=== PATIENT | male | born 1985 | race Caucasian/White ===

== ENCOUNTER 2017-07-24 17:34 | Emergency (ER) | payer MEDICARE ==
[2017-07-24] MEDS ORDERED: DICY10CA53 PO (18:42)
[2017-07-24] MEDS ORDERED: PSEU120T9 PO (18:42)
[2017-07-24] MEDS ORDERED: FLUT9.9S NS (18:42)
[2017-07-24] MEDS ORDERED: ONDA4TAB10 SL (18:42)
--- NOTE | 2017-07-24 18:43 | PHYS DOC ---
Past History Past Medical History: Depression, Sinusitis Past Surgical History: No Surgical History Smoking: Non-smoker Alcohol Use: Occasionally Drug Use: None Adult General Chief Complaint Chief Complaint: COUGH HPI HPI Patient is a 32-year-old male with a History of depression and sinusitis who presents with one episode of nausea and vomiting epigastric abdominal pain now resolved. Patient didn't having problems for years with the sinuses and he states that whenever his sinuses become congested he gets nauseated and vomits. He had one episode of nausea and vomiting that occurred 1 hour prior to arrival was nonbilious nonbloody he did have some "" abdominal soreness across the top of his abdomen. It is episodic it is not change with position or food. He's been suffering from this as well from a number of months. Although he has no primary care doctor. Denies any diarrhea, change in bowel habits, denies any travel outside the country, denies any recent antibiotic, denies any fevers, chills, blood in stool, denies any UTI symptoms, back pain or other symptoms. Nasal congestion which is occurring quite frequently causes pressure across his face with no fevers no chills no hearing loss or tinnitus or ear drainage loss and vision change in vision or headaches. Review of Systems Review of Systems Constitutional: Denies fever or chills [] Eyes: Denies change in visual acuity, redness, or eye pain [] HENT: Positive for nasal congestion without sore throat Respiratory: Positive for slight cough without shortness of breath] Cardiovascular: No additional information not addressed in HPI [] GI: Acid for abdominal pain nausea and vomiting 1 no bloody stools or diarrhea : Denies dysuria or hematuria [] Musculoskeletal: Denies back pain or joint pain [] Integument: Denies rash or skin lesions [] Neurologic: Denies headache, focal weakness or sensory changes [] Endocrine: Denies polyuria or polydipsia [] All other systems were reviewed and found to be within normal limits, except as documented in this note. Physical Exam Physical Exam Constitutional: Well developed, well nourished, no acute distress, non-toxic appearance. [] HENT: Normocephalic, atraumatic, bilateral external ears normal, oropharynx moist, no oral exudates, nose normal. No external tenderness to palpation of the frontal and maxillary sinuses TMs are clear bilaterally [] Eyes: PERRLA, EOMI, conjunctiva normal, no discharge. [] Neck: Normal range of motion, no tenderness, supple, no stridor. [] Cardiovascular:Heart rate regular rhythm, no murmur [] Lungs & Thorax: Bilateral breath sounds clear to auscultation [] Abdomen: Bowel sounds normal, soft, no tenderness, no masses, no pulsatile masses. No Ferrara's tenderness palpation of McBurney's point tenderness palpation no Sauer Bowman sign[] Skin: Warm, dry, no erythema, no rash. [] Extremities: ROM intact, no edema. [] Neurologic: Alert and oriented X 3, normal motor function, normal sensory function, no focal deficits noted. [] Psychologic: Affect normal, judgement normal, mood normal. [] EKG EKG [] Radiology/Procedures Radiology/Procedures [] Course & Med Decision Making Course & Med Decision Making Pertinent Labs and Imaging studies reviewed. (See chart for details) []Patient presents with one episode of nausea and vomiting with no blood no bile in his emesis his abdomen on my exam is very soft. He specifically has no tenderness in the right upper quadrant epigastric region or right lower quadrant. He is normoactive bowel sounds. He looks very well-hydrated with normal vital signs. On exam patient's face does not demonstrate any signs of acute sinusitis or retropharyngeal abscess, or peritonsillar abscess is normal voice with no lymphadenopathy anteriorly, no anterior neck stiffness. Patient sinusitis been bothering him for years. Given the fact this is single episode of nausea vomiting and his belly seems soft on my exam we talked about further workup and follow-up with his primary care doctor to address his chronic issues. At this point patient's primary looking for symptomatically treatment. My discharge plan Follow up: In addition patient is asked to followup with their primary doctor, within a week for followup examination and to address patient's ongoing medical conditions. . Patient is advised that in the Emergency Department primary complaints are addressed and only in light of known signs and symptoms. Patient should return immediately to the emergency department if new signs and symptoms develop or patient's condition worsens in any way. At time of discharge patient was in stable condition and had verbalized understanding of the discharge instructions. Although there is no obvious evidence of appendicitis or intra-abdominal catastrophe at this time requiring surgical intervention or immediate medical management you could still develop these issues in the future. I would ask that you return immediately for any increasing symptoms question concerns. Dragon Disclaimer Dragon Disclaimer This electronic medical record was generated, in whole or in part, using a voice recognition dictation system. Departure Departure: Impression: Primary Impression: Nausea and vomiting Additional Impressions: Abdominal pain Sinus pressure Acute sinusitis Disposition: 01 HOME, SELF-CARE Condition: STABLE Referrals: NON,STAFF (PCP) Patient Instructions: Abdominal Pain (Nonspecific), Nausea and Vomiting, Sinusitis Additional Instructions: My discharge plan Follow up: In addition patient is asked to followup with their primary doctor, within a week for followup examination and to address patient's ongoing medical conditions. . Patient is advised that in the Emergency Department primary complaints are addressed and only in light of known signs and symptoms. Patient should return immediately to the emergency department if new signs and symptoms develop or patient's condition worsens in any way. At time of discharge patient was in stable condition and had verbalized understanding of the discharge instructions. Although there is no obvious evidence of appendicitis or intra-abdominal catastrophe at this time requiring surgical intervention or immediate medical management you could still develop these issues in the future. I would ask that you return immediately for any increasing symptoms question concerns. Scripts Pseudoephedrine Hcl (SUDAFED 12-HOUR) 120 Mg Tablet.er 1 TAB PO BID, #20 TAB Prov: MILTON CARLSON MD 07/24/17 Ondansetron (ZOFRAN ODT) 4 Mg Tab.rapdis 1 TAB SL Q8HRS, #15 TAB Prov: MILTON CARLSON MD 07/24/17 Fluticasone Propionate (Flonase Allergy Relief) 9.9 Ml [place].susp 2 SPRAYS NS DAILY for 7 Days, BOTTLE Prov: MILTON CARLSON MD 07/24/17 Dicyclomine Hcl (BENTYL) 10 Mg Capsule 1 CAP PO TID, #15 CAP.EC Prov: MILTON CARLSON MD 07/24/17 Problem Qualifiers MILTON CARLSON MD Jul 24, 2017 18:43
[2017-07-24] MEDS ORDERED: KETOROLAC 60 MG/2 ML VIAL. IM ONE (18:45)
[2017-07-24] MEDS ORDERED: ONDANSETRON ODT 4 MG TAB.RAPDIS PO ONE (18:45)
[2017-07-24 18:59] VITALS: BP 116/75
== END 2017-07-24 18:59 | disposition home or self-care (01) ==
LOC: ER 17:34
DX: R11.2 Nausea with vomiting, unspecified (principal); R10.13 Epigastric pain; J01.90 Acute sinusitis, unspecified; R19.7 Diarrhea, unspecified; F32.9 Major depressive disorder, single episode, unspecified
CPT/HCPCS: 96372; 99283; J1885; Q0162

== ENCOUNTER 2017-09-24 22:03 | Emergency (ER) | payer MEDICAID, MEDICARE ==
[~2017-09-24] VITALS: Ht 188 cm; Wt 98.4 kg
[~2017-09-24 22:03] MED LIST: DICY10CA53 PO; FLUT9.9S NS; ONDA4TAB10 SL; PSEU120T9 PO
[2017-09-24] MEDS ORDERED: ONDANSETRON ODT 4 MG TAB.RAPDIS PO ONE (22:30)
--- NOTE | 2017-09-24 22:35 | ED.ADGEN ---
Past History Past Medical History: Anxiety, Depression, Sinusitis Past Surgical History: Other Smoking: Non-smoker Alcohol Use: Occasionally Drug Use: None Adult General Chief Complaint Chief Complaint nausea and vomiting HPI HPI Patient is a 32 year old male who presents with nausea and vomiting for 1 hour. Reports pain in chest and abdomen only with vomiting and then resolves. Prior to the vomiting starting, he was feeling well. Reports normal BM earlier today. Pt reports intermittent similar symptoms since having his adenoids taken out "about a month ago". 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 He reports chronic sinus drainage not relieved with daily allergy medication. Seen in July for identical sounding picture but hasn't seen a PCP, plans to f/u with Dr. Mayer. Does not think he has been on antibiotics in that time and hasn't f/u with the ENT doc that performed the surgery. Denies fevers, Pt denies abdominal pain at this time, no prior abdominal surgeries, denies fever. When family arrived, they report that pt has had multiple similar episodes in the last several months. Wowldr-cp-iho reports that she thought the vomit today had "coffee-ground" emesis today when she saw the vomit. No reports of chronic ibuprofen use. Review of Systems Review of Systems Constitutional: Denies fever or chills [] Eyes: Denies change in visual acuity, redness, or eye pain [] HENT: Denies nasal congestion or sore throat [] Respiratory: reports cough , denies shortness of breath [] Cardiovascular: No additional information not addressed in HPI [] GI: per hpi : Denies dysuria or hematuria [] Musculoskeletal: Denies back pain or joint pain [] Integument: Denies rash or skin lesions [] Neurologic: Denies headache, focal weakness or sensory changes [] Current Medications Current Medications Current Medications Medications (Trade) Dose Ordered Sig/Delmis Start Time Stop Time Status Last Admin Dose Admin Ondansetron HCl (Zofran Odt) 4 mg 1X ONCE 09/24/17 22:30 09/24/17 22:34 DC 09/24/17 22:35 4 MG Ondansetron HCl (Zofran) 4 mg 1X ONCE 09/24/17 23:00 09/25/17 00:18 DC 3/24/18 23:00 4 MG Sodium Chloride 1,000 ml @ 1,000 mls/hr 1X ONCE 09/25/17 00:00 09/25/17 00:59 DC 09/24/17 23:57 1,000 MLS/HR Allergies Allergies Allergies Coded Allergies Type Severity Reaction Last Updated Verified No Known Drug Allergies 07/24/17 No Physical Exam Physical Exam Constitutional: Well developed, well nourished, no acute distress, non-toxic appearance. [] HENT: Normocephalic, atraumatic, bilateral external ears normal, oropharynx moist, no oral exudates, nose normal. [] Eyes: PERRLA, EOMI, conjunctiva normal, no discharge. [] Neck: Normal range of motion, no tenderness, supple, no stridor. [] Cardiovascular:Heart rate regular with regular rhythm, no murmur [] Lungs & Thorax: Bilateral breath sounds clear to auscultation, no wheeze crackles or rhonchi Abdomen: Bowel sounds normal, soft, no tenderness, no masses, no pulsatile masses, negative mcburneys, no guarding or peritoneal signs, neg pimentel's Skin: Warm, dry, no erythema, no rash. [] Back: No tenderness, no CVA tenderness. [] Extremities: No tenderness, no cyanosis, no clubbing, ROM intact, no edema. [] Neurologic: Alert and oriented, normal motor function, normal sensory function, no focal deficits noted. [] Current Patient Data Vital Signs Vital Signs Date Time Temp Pulse Resp B/P (MAP) Pulse Ox O2 Delivery O2 Flow Rate FiO2 09/24/17 22:20 98.9 75 20 96 Room Air Lab Results Laboratory Tests Test 09/24/17 22:57 09/24/17 23:03 09/25/17 00:20 White Blood Count 9.7 x10^3/uL (4.0-11.0) Red Blood Count 5.22 x10^6/uL (4.30-5.70) Hemoglobin 15.7 g/dL (13.0-17.5) Hematocrit 46.1 % (39.0-53.0) Mean Corpuscular Volume 88 fL (79-100) Mean Corpuscular Hemoglobin 30 pg (25-35) Mean Corpuscular Hemoglobin Concent 34 g/dL (31-37) Red Cell Distribution Width 13.7 % (11.5-14.5) Platelet Count 285 x10^3/uL (140-400) Neutrophils (%) (Auto) 55 % (31-73) Lymphocytes (%) (Auto) 37 % (24-48) Monocytes (%) (Auto) 7 % (0-9) Eosinophils (%) (Auto) 1 % (0-3) Basophils (%) (Auto) 1 % (0-3) Neutrophils # (Auto) 5.3 x10^3uL (1.8-7.7) Lymphocytes # (Auto) 3.6 x10^3/uL (1.0-4.8) Monocytes # (Auto) 0.6 x10^3/uL (0.0-1.1) Eosinophils # (Auto) 0.1 x10^3/uL (0.0-0.7) Basophils # (Auto) 0.1 x10^3/uL (0.0-0.2) Sodium Level 140 mmol/L (136-145) Potassium Level 3.7 mmol/L (3.5-5.1) Chloride Level 101 mmol/L (98-107) Carbon Dioxide Level 24 mmol/L (21-32) Anion Gap 15 (6-14) H Blood Urea Nitrogen 9 mg/dL (8-26) Creatinine 1.4 mg/dL (0.7-1.3) H Estimated GFR (Cockcroft-Gault) 58.4 BUN/Creatinine Ratio 6 (6-20) Glucose Level 105 mg/dL (70-99) H Lactic Acid Level 4.3 mmol/L (0.4-2.0) *H 1.2 mmol/L (0.4-2.0) Calcium Level 9.7 mg/dL (8.5-10.1) Total Bilirubin 0.3 mg/dL (0.2-1.0) Aspartate Amino Transferase (AST) 20 U/L (15-37) Alanine Aminotransferase (ALT) 28 U/L (16-63) Alkaline Phosphatase 125 U/L (46-116) H Total Protein 8.0 g/dL (6.4-8.2) Albumin 4.2 g/dL (3.4-5.0) Albumin/Globulin Ratio 1.1 (1.0-1.7) Stool Occult Blood Negative (NEG) EKG EKG [] Radiology/Procedures Radiology/Procedures CXR 1 view: no cardi, pulmonary or bony abnormality. Interpreted by me.[] Course & Med Decision Making Course & Med Decision Making Pertinent Labs and Imaging studies reviewed. (See chart for details) I reviewed pt's medical records. Pt given zofran odt. CXR ordered for cough. When additional information provided by family, IV established, labs obtained, fecal occult and IV zofran and fluids given. Pt feeling much improved and symptoms resolved. Lactate elevated, likely due to the repeated vomiting. second liter of fluids ordered, and will repeat. If continues to be elevated, explained pt would need to be admitted. Repeat was normal. Pt's symptoms still controlled, dc'd home with strict return precautions, zofran RX, recommend f/u with Dr. Mayer and Dr. Davidson. Final Impression Final Impression Nausea and vomiting.[] Problems: Dragon Disclaimer Dragon Disclaimer This electronic medical record was generated, in whole or in part, using a voice recognition dictation system. DC MISTRY MD Sep 24, 2017 22:35
[2017-09-24] MEDS ORDERED: IV NORMAL SALINE 1,000ML 1,000 ML IV ONE (23:00)
[2017-09-24] MEDS ORDERED: ONDANSETRON PF 4 MG/2 ML VIAL. IV ONE (23:00)
[2017-09-24 23:18] LABS: BASO # 0.1 x10^3/uL (0.0-0.2); BASO % 1 % (0-3); EOS # 0.1 x10^3/uL (0.0-0.7); EOS % 1 % (0-3); HEMATOCRIT 46.1 % (39.0-53.0); HEMOGLOBIN 15.7 g/dL (13.0-17.5); LYMPH # 3.6 x10^3/uL (1.0-4.8); LYMPH % 37 % (24-48); MEAN CORPUSCULAR HEMOGLOBIN 30 pg (25-35); MEAN CORPUSCULAR HGB CONC 34 g/dL (31-37); MEAN CORPUSCULAR VOLUME 88 fL (79-100); MONO # 0.6 x10^3/uL (0.0-1.1); MONO % 7 % (0-9); NEUT # 5.3 x10^3uL (1.8-7.7); NEUT % 55 % (31-73); PLATELET COUNT 285 x10^3/uL (140-400); RED BLOOD COUNT 5.22 x10^6/uL (4.30-5.70); RED CELL DISTRIBUTION WIDTH 13.7 % (11.5-14.5); WHITE BLOOD COUNT 9.7 x10^3/uL (4.0-11.0)
[2017-09-24 23:24] LABS: FECAL OB PT NEGATIVE (NEG)
[2017-09-24 23:28] LABS: ALBUMIN 4.2 g/dL (3.4-5.0); ALBUMIN/GLOBULIN RATIO 1.1 (1.0-1.7); CALCIUM 9.7 mg/dL (8.5-10.1); CREATININE 1.4 mg/dL (0.7-1.3); GFR 58.4; POTASSIUM 3.7 mmol/L (3.5-5.1); TOTAL BILIRUBIN 0.3 mg/dL (0.2-1.0)
[2017-09-24] MEDS ORDERED: ONDA4TAB10 SL (23:50)
[2017-09-25] MEDS ORDERED: IV NORMAL SALINE 1,000ML 1,000 ML IV ONE
[2017-09-25 01:00] VITALS: BP 118/70
--- NOTE | 2017-09-25 08:08 | RAD ---
Portable chest, 09/24/2017: History: Cough, shortness of breath The heart size and pulmonary vascularity are normal. The lungs are clear. There is no evidence of pleural fluid. IMPRESSION: No acute cardiopulmonary abnormality is detected.
== END 2017-09-25 01:00 | disposition home or self-care (01) ==
LOC: ER 22:03
DX: R11.2 Nausea with vomiting, unspecified (principal); R05 Cough; F41.9 Anxiety disorder, unspecified; F32.9 Major depressive disorder, single episode, unspecified
CPT/HCPCS: 36415; 71045; 80053; 82274; 83605; 85025; 96361; 96374; 99285; J2405; Q0162; J7030

== ENCOUNTER 2017-10-12 20:48 | Inpatient (IN) | payer MEDICARE ==
[~2017-10-12] VITALS: Ht 185.4 cm; Wt 94.5 kg
[2017-10-12] MEDS ORDERED: IV NORMAL SALINE 1,000ML 1,000 ML IV ONE (21:15)
[2017-10-12] MEDS ORDERED: IPRATRPIUM/ALBUTEROL 0.5/2.5MG 3 ML NEBU. NEB ONE (21:30)
[2017-10-12] MEDS ORDERED: methylPREDNISolone SOD SUCC PF 125 MG/2 ML VIAL. IV ONE (21:30)
[2017-10-12] MEDS ORDERED: IV NORMAL SALINE 1,000ML 1,000 ML IV SCH (21:46)
[2017-10-12 22:01] LABS: BASO # 0.1 x10^3/uL (0.0-0.2); BASO % 0 % (0-3); EOS % 0 % (0-3); HEMATOCRIT 42.7 % (39.0-53.0); HEMOGLOBIN 14.5 g/dL (13.0-17.5); LYMPH # 2.4 x10^3/uL (1.0-4.8); LYMPH % 20 % (24-48); MEAN CORPUSCULAR HEMOGLOBIN 30 pg (25-35); MEAN CORPUSCULAR HGB CONC 34 g/dL (31-37); MEAN CORPUSCULAR VOLUME 87 fL (79-100); MONO # 0.8 x10^3/uL (0.0-1.1); MONO % 7 % (0-9); NEUT # 8.8 x10^3uL (1.8-7.7); NEUT % 73 % (31-73); PLATELET COUNT 248 x10^3/uL (140-400); RED BLOOD COUNT 4.92 x10^6/uL (4.30-5.70); RED CELL DISTRIBUTION WIDTH 13.6 % (11.5-14.5)
[2017-10-12 22:03] LABS: CALCIUM 9.3 mg/dL (8.5-10.1); CREATININE 1.4 mg/dL (0.7-1.3); GFR 58.4; POTASSIUM 3.7 mmol/L (3.5-5.1)
--- NOTE | 2017-10-12 22:08 | EKG ---
[address] [address] Test Date: 2017-10-12 Test Time: 21:52:46 Pat Name: HARSHAD GARLAND Department: Room: Gender: M Grid Inspector: : 1985 Requested By: BETHANY WEINER Order Number: [id number] Reading MD: Sterling Castillo MD Measurements Intervals [place] Rate: 112 P: 2 CO: 160 QRS: 39 QRSD: 76 T: 6 QT: 316 QTc: 433 Interpretive Statements SINUS TACHYCARDIA Electronically Signed On 10-17-2017 16:09:45 CDT by Sterling Castillo MD
[2017-10-12] MEDS ORDERED: HYDROcodone/APAP 5/325MG 1 TAB TABLET ONE (22:24)
[2017-10-12] MEDS ORDERED: HYDROcodone/APAP 5/325MG 1 TAB TABLET PO ONE (22:45)
[2017-10-12] MEDS ORDERED: KETOROLAC 30 MG/ML VIAL. IV ONE (22:45)
[2017-10-12] MEDS ORDERED: IV NORMAL SALINE 250ML 250 ML ONE (23:49)
[2017-10-12] MEDS ORDERED: IV NORMAL SALINE 50ML 50 ML ONE (23:50)
[2017-10-12] MEDS ORDERED: AZITHROMYCIN 500 MG VIAL. IV ONE (23:50)
[2017-10-12] MEDS ORDERED: cefTRIAXone SODIUM 1 GM VIAL IV ONE (23:50)
[2017-10-13] MEDS ORDERED: ACETAMINOPHEN 325 MG TABLET PO PRN
[2017-10-13] MEDS ORDERED: ALBUTEROL SULFATE 2.5 MG/3 ML NEBU. NEB PRN
[2017-10-13] MEDS ORDERED: ONDANSETRON PF 4 MG/2 ML VIAL. IV PRN
[2017-10-13] MEDS ORDERED: MORPHINE SULFATE 4 MG/ML DISP.SYRIN. IV PRN
[2017-10-13] MEDS ORDERED: AZITHROMYCIN 500 MG in IV NORMAL SALINE 250ML 250 ML IV ONE ×2
[2017-10-13] MEDS ORDERED: IV NORMAL SALINE 1,000ML 1,000 ML IV ONE
[2017-10-13] MEDS: IV NORMAL SALINE 1,000ML 1,000 ML IV SCH ×3 (00:14→18:25)
[2017-10-13 00:41] VITALS: BP 123/75
[2017-10-13] MEDS ORDERED: OLAN5TAB9 PO (01:11)
[2017-10-13] MEDS ORDERED: PNEUMOCOCCAL VAX SCREEN. MC ONE (02:30)
--- NOTE | 2017-10-13 04:02 | PHYS DOC ---
Past History Past Medical History: Anxiety, Depression, Sinusitis Past Surgical History: Other Smoking: Non-smoker Alcohol Use: Occasionally Drug Use: None Adult General Chief Complaint Chief Complaint: COUGH HPI HPI 32-year-old male with a history of anxiety depression and a mental challenges, now presents the emergency department complaining of worsening chronic cough for the last month. Patient now feels more short of breath. He is hypoxic on room air at 86-88%. 95% on 2 L nasal cannula. Patient states his cough is severe at times but nonproductive. He denies any exertional chest pain sometimes has some discomfort with cough. His no history of blood clot DVT or PE and no limb pain or swelling. No fevers chills sweats or shaking chills. Denies other complaint Review of Systems Review of Systems Constitutional: Denies fever or chills [] Eyes: Denies change in visual acuity, redness, or eye pain [] HENT: Denies nasal congestion or sore throat [] Respiratory: Denies cough or shortness of breath [] Cardiovascular: No additional information not addressed in HPI [] GI: Denies abdominal pain, nausea, vomiting, bloody stools or diarrhea [] : Denies dysuria or hematuria [] Musculoskeletal: Denies back pain or joint pain [] Integument: Denies rash or skin lesions [] Neurologic: Denies headache, focal weakness or sensory changes [] Endocrine: Denies polyuria or polydipsia [] All other systems were reviewed and found to be within normal limits, except as documented in this note. Current Medications Current Medications Current Medications Medications (Trade) Dose Ordered Sig/Delmis Start Time Stop Time Status Last Admin Dose Admin Acetaminophen/ Hydrocodone Bitart (Lortab 5/325) 1 tab STK-MED ONCE 10/12/17 22:24 10/12/17 22:25 DC Albuterol/ Ipratropium (Duoneb) 3 ml 1X ONCE 10/12/17 21:30 10/12/17 21:31 DC 10/12/17 21:42 3 ML Ketorolac Tromethamine (Toradol) 30 mg 1X ONCE 10/12/17 22:45 10/12/17 22:46 DC 10/12/17 22:37 30 MG Methylprednisolone Sodium Succinate (SOLU-Medrol 125MG VIAL) 125 mg 1X ONCE 10/12/17 21:30 10/12/17 21:31 DC 10/12/17 21:41 125 MG Sodium Chloride 1,000 ml @ 500 mls/hr Q2H 10/12/17 21:46 10/12/17 23:45 DC 10/12/17 22:37 500 MLS/HR Allergies Allergies Allergies Coded Allergies Type Severity Reaction Last Updated Verified No Known Drug Allergies 07/24/17 No Physical Exam Physical Exam Constitutional: Well developed, well nourished, no acute distress, non-toxic appearance. [] HENT: Normocephalic, atraumatic, bilateral external ears normal, oropharynx moist, no oral exudates, nose normal. [] Eyes: PERRLA, EOMI, conjunctiva normal, no discharge. [] Neck: Normal range of motion, no tenderness, supple, no stridor. [] Cardiovascular:Heart rate regular rhythm, no murmur [] Lungs & Thorax: Occasional scattered rhonchi mild prolonged expiratory phase without jorge luis wheezing. No Rales rubs Abdomen: Bowel sounds normal, soft, no tenderness, no masses, no pulsatile masses. [] Skin: Warm, dry, no erythema, no rash. [] Back: No tenderness, no CVA tenderness. [] Extremities: No tenderness, no cyanosis, no clubbing, ROM intact, no edema. [] Neurologic: Alert and oriented X 3, normal motor function, normal sensory function, no focal deficits noted. [] Psychologic: Patient is a mildly flat affect which his brother says is his baseline, judgement normal, mood normal. [] Current Patient Data Vital Signs Vital Signs Date Time Temp Pulse Resp B/P (MAP) Pulse Ox O2 Delivery O2 Flow Rate FiO2 10/13/17 00:45 Nasal Cannula 2.0 10/13/17 00:41 98.4 99 16 123/75 (91) 95 Lab Results Laboratory Tests Test 10/12/17 21:15 10/12/17 22:34 10/13/17 00:10 White Blood Count 12.0 x10^3/uL (4.0-11.0) H Red Blood Count 4.92 x10^6/uL (4.30-5.70) Hemoglobin 14.5 g/dL (13.0-17.5) Hematocrit 42.7 % (39.0-53.0) Mean Corpuscular Volume 87 fL (79-100) Mean Corpuscular Hemoglobin 30 pg (25-35) Mean Corpuscular Hemoglobin Concent 34 g/dL (31-37) Red Cell Distribution Width 13.6 % (11.5-14.5) Platelet Count 248 x10^3/uL (140-400) Neutrophils (%) (Auto) 73 % (31-73) Lymphocytes (%) (Auto) 20 % (24-48) L Monocytes (%) (Auto) 7 % (0-9) Eosinophils (%) (Auto) 0 % (0-3) Basophils (%) (Auto) 0 % (0-3) Neutrophils # (Auto) 8.8 x10^3uL (1.8-7.7) H Lymphocytes # (Auto) 2.4 x10^3/uL (1.0-4.8) Monocytes # (Auto) 0.8 x10^3/uL (0.0-1.1) Eosinophils # (Auto) 0.0 x10^3/uL (0.0-0.7) Basophils # (Auto) 0.1 x10^3/uL (0.0-0.2) Sodium Level 138 mmol/L (136-145) Potassium Level 3.7 mmol/L (3.5-5.1) Chloride Level 101 mmol/L (98-107) Carbon Dioxide Level 26 mmol/L (21-32) Anion Gap 11 (6-14) Blood Urea Nitrogen 7 mg/dL (8-26) L Creatinine 1.4 mg/dL (0.7-1.3) H Estimated GFR (Cockcroft-Gault) 58.4 Glucose Level 90 mg/dL (70-99) Calcium Level 9.3 mg/dL (8.5-10.1) Troponin I Quantitative < 0.017 ng/mL (0-0.055) D-Dimer (Gabby) 0.29 mg/L (0.00-0.50) Lactic Acid Level 2.3 mmol/L (0.4-2.0) H EKG EKG EKG with normal sinus tachycardia at 112 normal axis no STEMI interpreted by me[ ] Radiology/Procedures Radiology/Procedures Chest x-ray with no acute disease, no visible infiltrate or pneumothorax, mass, effusion interpreted by me[] Course & Med Decision Making Course & Med Decision Making Pertinent Labs and Imaging studies reviewed. (See chart for details) Signs and symptoms consistent with clinical diagnosis of pneumonia however given chronicity and nonproductive cough suspect atypical pneumonia. Patient's chest x-ray is unremarkable however he has an oxygen requirement despite bronchodilator therapy and patient has only prolonged expiratory phase without jorge luis wheezing but he did feel improved after nebulized therapy. Oxygen requirement remained with pulse ox around 87% on room air without supplemental oxygen. Patient with low blood cell count of 12.0. D-dimer was negative with a low pretest probability for PE. Given patient's tachycardia and elevated white blood cell count consistent with Sirs and sepsis, blood cultures and lactate drawn and antibiotic coverage for community-acquired pneumonia which includes the Zithromax coverage appropriate for atypical pneumonia. Case discussed with Dr. Forrest hospitalist on-call is aware the history and findings and accept the patient for inpatient admission to his service [] Dragon Disclaimer Dragon Disclaimer This electronic medical record was generated, in whole or in part, using a voice recognition dictation system. Departure Departure: Impression: Primary Impression: Pneumonia Disposition: ADMITTED INPATIENT Admitting Physician: Christi Forrest Condition: GUARDED Referrals: PAULO STACY MD (PCP) BETHANY WEINER MD Oct 13, 2017 04:02
[2017-10-13 04:21] LABS: BASO % 0 % (0-3); EOS % 0 % (0-3); HEMATOCRIT 39.6 % (39.0-53.0); HEMOGLOBIN 13.5 g/dL (13.0-17.5); LYMPH # 0.6 x10^3/uL (1.0-4.8); LYMPH % 7 % (24-48); MEAN CORPUSCULAR HEMOGLOBIN 30 pg (25-35); MEAN CORPUSCULAR HGB CONC 34 g/dL (31-37); MEAN CORPUSCULAR VOLUME 88 fL (79-100); MONO % 1 % (0-9); NEUT # 8.3 x10^3uL (1.8-7.7); NEUT % 93 % (31-73); PLATELET COUNT 212 x10^3/uL (140-400); RED BLOOD COUNT 4.51 x10^6/uL (4.30-5.70); RED CELL DISTRIBUTION WIDTH 13.5 % (11.5-14.5); WHITE BLOOD COUNT 8.9 x10^3/uL (4.0-11.0)
[2017-10-13 04:37] LABS: ALBUMIN 3.5 g/dL (3.4-5.0); ALBUMIN/GLOBULIN RATIO 1.1 (1.0-1.7); CALCIUM 8.4 mg/dL (8.5-10.1); CREATININE 1.2 mg/dL (0.7-1.3); GFR 69.7; POTASSIUM 4.9 mmol/L (3.5-5.1); TOTAL BILIRUBIN 0.2 mg/dL (0.2-1.0); TOTAL PROTEIN 6.8 g/dL (6.4-8.2)
[2017-10-13 05:02] VITALS: BP 114/73
--- NOTE | 2017-10-13 08:11 | RAD ---
2 views of the Chest 10/12/2017 11:11 PM Indication: cough Comparison: Chest radiograph September 24, 2017 Findings: There is no focal consolidation or infiltrate identified. There is no effusion or pneumothorax. The cardiomediastinal silhouette and pulmonary vasculature are within normal limits. No osseous abnormality is identified. Impression: No evidence of acute cardiopulmonary process.
[2017-10-13] MEDS ORDERED: PNEUMOC CONJ VACC 23-VALENT 0.5 ML VIAL. VAX IM ONE (09:00)
[2017-10-13 10:49] VITALS: BP 117/78
--- NOTE | 2017-10-13 14:35 | HP ---
ADMIT DATE: 10/13/2017 HISTORY OF PRESENT ILLNESS: The patient is a 32-year-old male patient, who came to the Emergency Room complaining recurrent bouts of cough and vomiting that have been going on for the last 2 months. He has also complained of shortness of breath. He was hypoxic on arrival with an oxygen saturation of 86-88% that has improved to 95% on 2 liters of oxygen by nasal cannula. The cough is very severe, but nonproductive. He denied any exertional chest pain. Denied any history of blood clot, DVT or PE. Denied any swelling of the legs. Denied any chills, rigors or fever. He was evaluated in the Emergency Room and apparently was diagnosed with n atypical pneumonia, although I really have not seen anything on the chest x-ray and the radiology report also did not show any abnormality. He was admitted to continue with IV Rocephin and Zithromax. PAST MEDICAL HISTORY: His past medical history is significant for depression. PAST SURGICAL HISTORY: Past surgical history is significant for adenoidectomy. ALLERGIES: He has known drug allergies. FAMILY HISTORY: He has 2 brothers, healthy. His father at the age of 47at an accident and mother in lung cancer. SOCIAL HISTORY: He is single, never . He has no children. He used to chew tobacco. He does not drink alcohol and he basically lives with his brother and qqjixo-ju-pst; apparently has some mental challenge. REVIEW OF SYSTEMS: As in history of present illness. PHYSICAL EXAMINATION: GENERAL: On examining him, he looked well and was clearly in no apparent respiratory distress. VITAL SIGNS: On arrival, he was actually tachycardic with heart rate of 122, blood pressure was 130/75, temperature was 98.7, respiratory rate was 98, and oxygen saturation was 98% on 2 liters of oxygen. HEAD, EYES, EARS, NOSE AND THROAT: Showed normocephalic, atraumatic. NECK: Supple. HEART: Showed normal first and second heart sounds with no gallop, rub or murmur. CHEST: Clear to auscultation. No crepitation or rhonchi. ABDOMEN: Distended, soft, nontender. No guarding or rigidity. No organomegaly. Hernial orifice is intact. Bowel sounds normal. NEUROLOGIC: He was awake, alert, responding appropriately. Cranial nerves are intact. EXTREMITIES: He moves extremities without difficulty, ambulates without assistance or assistive devices. LABORATORY AND DIAGNOSTIC DATA: His lab work showed serum sodium 138, potassium 3.7, chloride 101, bicarbonate 26, anion gap of 11, BUN 7, creatinine 1.4, estimated GFR was 58 mL per minute. His glucose was 90, calcium was 9.3. His white cell count was slightly elevated at 12,000, hemoglobin 14, hematocrit 42, MCV 87, and platelet count of 248,000. His D-dimer was 0.29. The patient has chest x-ray, which showed there is no focal consolidation or infiltrate identified. There is no effusion or pneumothorax. Cardiomediastinal silhouette and pulmonary vasculature are within normal limits. No osseous abnormalities identified. No evidence of acute cardiopulmonary process. ASSESSMENT AND PLAN: The patient was admitted with what prescribed as atypical pneumonia and was admitted to continue with IV Zithromax and ceftriaxone. RUFINA SANTANA MD DR: GORDON/luisito JOB#: [id number] / [id number]
[2017-10-13 14:56] VITALS: BP 124/73
[2017-10-13 18:59] VITALS: BP 100/69
[2017-10-13] MEDS: LACTOBACILLUS RHAMNOSUS GG 1 CAPSULE. PO SCH (20:27)
[2017-10-13] MEDS ORDERED: cefTRIAXone IV Push 1 GM VIAL. IVP SCH (21:00)
--- NOTE | 2017-10-13 23:06 | PN ---
DATE: 10/13/2017 SUBJECTIVE: The patient is sitting slightly propped up in bed, in no apparent respiratory distress. Awake, alert, continued to have cough. Denied any vomiting. Denied any chest pain or shortness of breath. OBJECTIVE: GENERAL: When I examined him, he looked well and was clearly in no apparent respiratory distress. VITAL SIGNS: His heart rate was 74, blood pressure was 117/78, temperature was 98, respiratory rate 20, and oxygen saturation was 98% on 2 liters of oxygen. The rest of clinical examination is unremarkable. In particular, chest was clear with no evidence of any crepitation or rhonchi. LABORATORY DATA: His white cell count is down to 8900, hemoglobin 13, hematocrit 39, MCV 88 and platelet count 212,000. His chemistry showed a serum sodium of 138, potassium 4.9, chloride 104, bicarbonate 24, anion gap of 10, BUN 8, creatinine 1.2, estimated GFR was 69 mL per minute. His glucose was 154, calcium was 8.4. Total bilirubin, AST, ALT were normal. Alkaline phosphatase was slightly elevated and total protein was 6.8, albumin 3.5. ASSESSMENT: Atypical pneumonia. PLAN: Continue with IV Zithromax and ceftriaxone. We will evaluate the patient again tomorrow and hopefully he can be discharged home to continue treatment as an outpatient. RUFINA SANTANA MD DR: GORDON/luisito JOB#: [id number] / [id number]
[2017-10-13 23:32] VITALS: BP 135/79
[2017-10-14 05:11] VITALS: BP 107/65
[2017-10-14] MEDS: LACTOBACILLUS RHAMNOSUS GG 1 CAPSULE. PO SCH (08:35)
[2017-10-14] MEDS ORDERED: AZITHROMYCIN 250 MG TABLET. PO SCH (09:00)
[2017-10-14 10:35] VITALS: BP 113/68
[2017-10-14 14:35] VITALS: BP 127/71
--- NOTE | 2017-10-14 21:51 | DS ---
DATE OF DISCHARGE: 10/14/2017 HOSPITAL COURSE: The patient is a 32-year-old male patient who came to the Emergency Room complaining of cough that has been going on for the last 2 months. He did also complain of shortness of breath. He was hypoxic on arrival with oxygen saturation of 86-88% that has improved to 95% on 2 liters of oxygen by nasal cannula. He was extensively investigated in the Emergency Room. His D-dimer was only 0.29. White cell count was slightly elevated at 12,000. His chemistry was mostly unremarkable. His chest x-ray showed that there is no focal consolidation or infiltrate identified. There is no effusion or pneumothorax. The cardiomediastinal silhouette and pulmonary vasculature are within normal limits. No osseous abnormalities identified. HISTORY OF PRESENT ILLNESS: The patient was admitted with diagnosis of atypical pneumonia, although I really could not see any evidence of pneumonia, but he probably has acute bronchitis. His bqtpza-wz-qod stated that he has been working on cutting fiberglass for years and there is no evidence that he has any interstitial lung disease at least by clinical examination or the x-ray. We did start him on Zithromax and ceftriaxone, and he did actually very well and he continued to have cough, mostly nonproductive. He has no more complaints of chest pain and has been able to sustain his oxygen saturation at 96% at rest and on exertion. I explained to his brother that with a little information we have here, I cannot really confirm or refute that his exposure to fiberglass is the cause of his problem; however, there are many other explanations for chronic cough like bronchial asthma that is mostly dry cough and acid reflux can cause that, infection atypical organisms like mycoplasma pneumonia, legionnaire disease and Q fever can cause this. I did give him the names of Dr. Hinson and Dr. Hernandez for him to be seen there and evaluated for possible exposure to fiberglass. PHYSICAL EXAMINATION: GENERAL: However, today, he looked well and was clearly in no apparent respiratory distress; no pallor, jaundice, cyanosis, or thyromegaly. No jugular venous distension. No limb edema. VITAL SIGNS: Her heart rate was 81, blood pressure 113/68, temperature was 98.1, respiratory rate 20, and oxygen saturation was 99% on room air. HEAD, EYES, EARS, NOSE AND THROAT: Showed normocephalic, atraumatic. NECK: Supple. HEART: Showed normal first and second heart sounds. No gallop, rub or murmur. CHEST: Clear to auscultation. No crepitation or rhonchi. ABDOMEN: Distended, soft, nontender. NEUROLOGIC: He was awake, alert, responding appropriately. All cranial nerves intact. He moves extremities without difficulty, ambulates without assistance or assistive devices. LABORATORY DATA: His lab work this morning showed serum sodium 138, potassium 4.9, chloride 104, bicarbonate 24, anion gap of 10, BUN 8, creatinine is 1.2, estimated GFR was 70 mL per minute, his glucose 154, calcium was 8.4. Total bilirubin, AST, ALT, alkaline phosphatase were normal. Total protein was 6.8, albumin 3.5. His white cell count is down to 8900, hemoglobin 13, hematocrit 39, MCV 88 and platelet count 212,000. The patient will be discharged home to continue on Zithromax 250 mg once a day, Vantin 200 mg twice a day for 7 days. The patient was given the names of 2 pulmonologists at [facility], Dr. Olivia Hinson and Dr. Hernandez, to evaluate him further for possible occupational asthma versus interstitial lung disease. RUFINA SANTANA MD DR: GORDON/luisito JOB#: [id number] / [id number]
[2017-10-15] MEDS ORDERED: ASPI81TA44 PO (18:22)
[2017-10-15] MEDS ORDERED: RANI150T6 PO (18:22)
[2017-10-15] MEDS ORDERED: IBUP100O25 PO (18:24)
== END 2017-10-14 13:20 | disposition home or self-care (01) | DRG 189 ==
LOC: ER 20:48 → 1 SOUTH 23:19
PROVIDERS: ADMIT Internal Medicine; ATTEND Internal Medicine
DX: J96.21 Acute and chronic respiratory failure with hypoxia (principal); J84.9 Interstitial pulmonary disease, unspecified; J20.9 Acute bronchitis, unspecified; F32.9 Major depressive disorder, single episode, unspecified; F41.9 Anxiety disorder, unspecified; Z80.1 Family history of malignant neoplasm of trachea, bronchus and lung; Z82.5 Family history of asthma and other chronic lower respiratory diseases; Z87.891 Personal history of nicotine dependence
CPT/HCPCS: 36415; 71046; 80048; 80053; 83605; 84484; 85025; 85379; 87040; 90732; 93005; 94640; 96361; 96374; 96375; J0456; J0696; J1885; J2930; J7050; J7620; 99285-25; J7030

== ENCOUNTER 2017-10-15 16:29 | Emergency (ER) | payer MEDICARE ==
[~2017-10-15] VITALS: Ht 368.3 cm; Wt 94.3 kg
[~2017-10-15 16:29] MED LIST changes: +OLAN5TAB9 PO
--- NOTE | 2017-10-15 16:52 | PHYS DOC ---
Past History Past Medical History: Anxiety, Depression, Sinusitis, Other (mental challenges) Past Surgical History: Other Smoking: Non-smoker Alcohol Use: Occasionally Drug Use: None Adult General Chief Complaint Chief Complaint: CHEST PAIN [facility] 32-year-old male patient with history of depression and anxiety and mentally challenged was admitted on October 13 with diagnose of chest pain and discharged home 2 days ago without abnormal finding brought in by his brother because of intermittent episodes of chest pain since this afternoon. Patient complaining of intermittent episodes of sharp pain in his substernal area without radiation that last about 2 minutes and repeated frequently. Patient complaining of dizziness and shortness of breath without palpitation, nausea, focal neuro deficit, cough and congestion, fever and chills. Patient rated his pain 10 over 10. Patient is a poor historian. Review of Systems Review of Systems Constitutional: Denies fever or chills [] Eyes: Denies change in visual acuity, redness, or eye pain [] HENT: Denies nasal congestion or sore throat [] Respiratory: Reports shortness of breath [] Cardiovascular: No additional information not addressed in HPI [] GI: Denies abdominal pain, nausea, vomiting, bloody stools or diarrhea [] : Denies dysuria or hematuria [] Musculoskeletal: Denies back pain or joint pain [] Integument: Denies rash or skin lesions [] Neurologic: Denies headache, focal weakness or sensory changes [] Endocrine: Denies polyuria or polydipsia [] All other systems were reviewed and found to be within normal limits, except as documented in this note. Family History Family History Non-contributory Current Medications Current Medications See Nursing for home meds Allergies Allergies Allergies Coded Allergies Type Severity Reaction Last Updated Verified No Known Drug Allergies 07/24/17 No Physical Exam Physical Exam Constitutional: Well nourished, mild distress, non-toxic appearance, anxious [] HENT: Normocephalic, atraumatic, oropharynx moist Eyes: PERRLA, EOMI, conjunctiva normal, no discharge. [] Neck: Normal range of motion, no tenderness, supple, no stridor. [] Cardiovascular: Tachycardia, no murmur [] Lungs & Thorax: Bilateral breath sounds clear to auscultation [] Abdomen: Bowel sounds normal, soft, no tenderness, no masses, no pulsatile masses. [] Skin: Warm, dry, no erythema, no rash. [] Back: No tenderness, no CVA tenderness. [] Extremities: No tenderness, no cyanosis, no clubbing, ROM intact, no edema. [] Neurologic: Alert and oriented X 3, normal motor function, normal sensory function, no focal deficits noted. [] Psychologic: Anxious Current Patient Data Vital Signs Vital Signs Date Time Temp Pulse Resp B/P (MAP) Pulse Ox O2 Delivery O2 Flow Rate FiO2 10/15/17 16:35 98.3 105 16 98 Room Air EKG EKG EKG interpreted by me. EKG at 1635 showed sinus tachycardia at rate of 111, otherwise normal EKG.[] Radiology/Procedures Radiology/Procedures Chest x-ray interpreted by me and did not show acute finding.[] Course & Med Decision Making Course & Med Decision Making Pertinent Labs and Imaging studies reviewed. (See chart for details) Evaluation of patient in ER showed 32-year-old female patient with anxiety presented for the second time to emergency room because of chest pain. Patient had tachycardia but he his previous admission he did not have tachycardia. And treated with Ativan without change of tachycardia. D-dimer is pending. Patient care transferred to Dr. Hull at 1800. Review labs with pt. and his brother. Pt. to follow up with Dr. Stacy. Pt to Get out/ pt. follow up, stress testing. Suspect possible GI / Reflux a component of his chest discomfort. Consider EGD. Will give trial of Zantac. Pt. to take Zantac 150 twice a day. Aspirin 81 mg daily. Ibuprofen for marked pleuritic discomfort. Must follow up. Return if any concerns. Pt. reports Chest pain has been constant since admission for pneumonia 10/13/17. Pt. does report episodes of reflux. Impression: 1. Chest Pain 2. Pleuritic chest pain 3. GERD 4. Anxiety 5. Development - Mentally Handicap Dragon Disclaimer Dragon Disclaimer This electronic medical record was generated, in whole or in part, using a voice recognition dictation system. Departure Departure: Impression: Primary Impression: Chest pain Additional Impressions: Anxiety Tachycardia GERD (gastroesophageal reflux disease) Mentally challenged Disposition: 01 HOME, SELF-CARE Condition: IMPROVED Referrals: PAULO STACY MD (PCP) Patient Instructions: Gastroesophageal Reflux Disease, Adult Scripts Ibuprofen (IBUPROFEN) 100 Mg/5 Ml Oral.susp 200 MG PO QIDPRN Y for PAIN, #90 LIQUID Prov: PHUONG HULL MD 10/15/17 Ranitidine Hcl (ZANTAC) 150 Mg Tablet 150 MG PO BID for 30 Days, #60 TAB Prov: PHUONG HULL MD 10/15/17 Aspirin (Children's Aspirin) 81 Mg Tab.chew 81 MG PO DAILY, #90 TAB.CHEW Prov: PHUONG HULL MD 10/15/17 Problem Qualifiers PINKY LEWIS MD Oct 15, 2017 16:52 PHUONG HULL MD Oct 16, 2017 00:38
[2017-10-15] MEDS ORDERED: LORazepam 2 MG/ML VIAL IV ONE (17:00)
[2017-10-15 17:21] LABS: BASO % 0 % (0-3); EOS # 0.1 x10^3/uL (0.0-0.7); EOS % 1 % (0-3); HEMATOCRIT 42.6 % (39.0-53.0); HEMOGLOBIN 14.7 g/dL (13.0-17.5); LYMPH % 25 % (24-48); MEAN CORPUSCULAR HEMOGLOBIN 30 pg (25-35); MEAN CORPUSCULAR HGB CONC 34 g/dL (31-37); MEAN CORPUSCULAR VOLUME 87 fL (79-100); MONO # 0.6 x10^3/uL (0.0-1.1); MONO % 8 % (0-9); NEUT # 5.1 x10^3uL (1.8-7.7); NEUT % 65 % (31-73); PLATELET COUNT 231 x10^3/uL (140-400); RED BLOOD COUNT 4.88 x10^6/uL (4.30-5.70); RED CELL DISTRIBUTION WIDTH 13.6 % (11.5-14.5); WHITE BLOOD COUNT 7.8 x10^3/uL (4.0-11.0)
[2017-10-15 18:00] LABS: ALBUMIN 3.7 g/dL (3.4-5.0); ALBUMIN/GLOBULIN RATIO 1.1 (1.0-1.7); ALK PHOS 116 U/L (46-116); ALT (SGPT) 34 U/L (16-63); ANION GAP 9 (6-14); AST (SGOT) 18 U/L (15-37); BLOOD UREA NITROGEN 13 mg/dL (8-26); BUN/CREATININE RATIO 13 (6-20); CALCIUM 8.9 mg/dL (8.5-10.1); CARBON DIOXIDE 27 mmol/L (21-32); CHLORIDE 103 mmol/L (98-107); GFR 86.1; GLUCOSE 120 mg/dL (70-99); POTASSIUM 3.5 mmol/L (3.5-5.1); SODIUM 139 mmol/L (136-145); TOTAL BILIRUBIN 0.3 mg/dL (0.2-1.0)
--- NOTE | 2017-10-15 18:19 | EKG ---
[address] [address] Test Date: 2017-10-15 Test Time: 16:35:00 Pat Name: HARSHAD GARLAND Department: Room: Gender: M [employer]: : 1985 Requested By: PINKY LEWIS Order Number: [id number] Reading MD: Measurements Intervals [place] Rate: 111 P: 28 IN: 148 QRS: 47 QRSD: 72 T: 13 QT: 314 QTc: 430 Interpretive Statements SINUS TACHYCARDIA OTHERWISE NORMAL ECG RI6.01 No previous ECG available for comparison
[2017-10-15] MEDS ORDERED: ASPI81TA44 PO (18:22)
[2017-10-15] MEDS ORDERED: RANI150T6 PO (18:22)
[2017-10-15] MEDS ORDERED: IBUP100O25 PO (18:24)
[2017-10-15] MEDS ORDERED: IV RINGERS SOLUTION,LACTATED 1,000 ML IV ONE (18:30)
[2017-10-15] MEDS ORDERED: KETOROLAC 30 MG/ML VIAL. IV ONE (19:00)
[2017-10-15] MEDS ORDERED: FAMOTIDINE 20 MG TABLET PO ONE (19:00)
[2017-10-15 19:10] VITALS: BP 119/78
--- NOTE | 2017-10-16 09:08 | RAD ---
EXAM: Chest 2 views. HISTORY: Chest pain. COMPARISON: 10/12/2017. FINDINGS: Frontal and lateral views of the chest are obtained. There are no confluent infiltrates. There is no pneumothorax or pleural effusion. The heart is not enlarged. IMPRESSION: 1. No confluent infiltrates.
== END 2017-10-15 19:17 | disposition home or self-care (01) ==
LOC: ER 16:29
DX: F41.9 Anxiety disorder, unspecified (principal); R00.0 Tachycardia, unspecified; K21.9 Gastro-esophageal reflux disease without esophagitis; F70 Mild intellectual disabilities; F32.9 Major depressive disorder, single episode, unspecified
CPT/HCPCS: 36415; 71046; 80053; 82553; 84484; 85025; 85379; 93005; 96361; 96374; 96375; 99285; J1885; J2060; J7120